=== PATIENT | male | born 1980 | race Caucasian/White ===

== ENCOUNTER 2019-09-11 19:13 | Emergency (ER) | payer MEDICAID ==
[~2019-09-11] VITALS: Ht 180.3 cm; Wt 88.0 kg
[2019-09-11] MEDS ORDERED: IBUPROFEN 200 MG TABLET PO ONE (21:30)
[2019-09-11] MEDS ORDERED: DEXAMETHASONE 4 MG TABLET PO ONE (21:30)
[2019-09-11] MEDS ORDERED: IBUPROFEN 600 MG TABLET ONE (21:31)
[2019-09-11] MEDS ORDERED: DEXAMETHASONE 4 MG TABLET ONE (21:31)
[2019-09-11 21:32] LABS: BASOPHILS # (AUTO) 0.03 x10^3/uL (0-0.1); BASOPHILS % (AUTO) 0 % (0-1); EOSINOPHILS # (AUTO) 0.18 x10^3/uL (0-0.4); EOSINOPHILS % (AUTO) 2 % (1-7); LYMPHOCYTES # (AUTO) 1.08 x10^3/uL (1-3.4); LYMPHOCYTES % (AUTO) 13 % (22-44); MD NO; MEAN CORPUSCULAR HEMOGLOBIN 27.1 pg (27.5-34.5); MEAN CORPUSCULAR HGB CONC 32.7 g/dL (33.2-36.2); MEAN CORPUSCULAR VOLUME 82.9 fL (81-97); MEAN PLATELET VOLUME 7.1 fL (7.4-10.4); MONOCYTES # (AUTO) 0.85 x10^3/uL (0.2-0.8); MONOCYTES % (AUTO) 10 % (2-9); NEUTROPHILS # (AUTO) 6.05 x10^3/uL (1.8-6.8); NEUTROPHILS % (AUTO) 74 % (42-75); PLATELET COUNT 369 x10^3/uL (130-400); RED BLOOD COUNT 5.53 x10^6/uL (4.38-5.82); RED CELL DISTRIBUTION WIDTH 14.1 % (9.4-14.8)
[2019-09-11 21:43] LABS: ALBUMIN 3.4 g/dL (3.4-5.0); ANION GAP 6 mmol/L (5-15); CALCIUM 8.6 mg/dL (8.5-10.1); CHLORIDE 105 mmol/L (98-107)
--- NOTE | 2019-09-11 22:11 | NUR ---
RECEIVED REPORT AND ASSUMED PT. CARE. PT. IS RESTING WITHOUT CONCERNS AT THIS TIME.
[2019-09-11 23:05] VITALS: BP 120/84
== END 2019-09-11 23:08 | disposition home or self-care (01) ==
LOC: ED 23:00
DX: J02.8 Acute pharyngitis due to other specified organisms (principal); R00.0 Tachycardia, unspecified; H92.03 Otalgia, bilateral; F17.210 Nicotine dependence, cigarettes, uncomplicated
CPT/HCPCS: 36415; 80048; 82040; 85025; 86308; 87081; 87880; 93005; 99284; 99406